=== PATIENT | female | born 1995 | race Caucasian/White ===

== ENCOUNTER 2019-04-28 09:20 | Emergency (ER) | payer BC, SELFPAY ==
[2019-04-28 09:38] VITALS: BP 139/83; PULSE 126; RESP 20; TEMP 37.4; O2SAT 100
--- NOTE | 2019-04-28 09:54 | ED.SKABFB ---
HPI - Skin/Abscess/Foreign Bdy General Chief complaint: Skin/Abscess/Foreign Body <MYNOR Nguyễn Last Filed: 04/28/19 10:02> Stated complaint: RASH X1D <MYNOR Nguyễn Last Filed: 04/28/19 10:02> Time Seen by Provider: 04/28/19 09:29 <MYNOR Nguyễn Last Filed: 04/28/19 10:02> Source: patient <MYNOR Nguyễn Last Filed: 04/28/19 10:02> Mode of arrival: ambulatory <MYNOR Nguyễn Last Filed: 04/28/19 10:02> Limitations: no limitations <Juanis Harry PA-C - Last Filed: 04/28/19 10:02> History of Present Illness HPI narrative: This is a 23-year-old female that presents the emergency department for rash since yesterday. Reports a week and a half ago she was seen at an urgent care and diagnosed with possible strep and started on Bactrim. Reports a culture of her throat was sent, that did come back positive. Reports she was seen again at an urgent care yesterday when she started to develop a rash after finishing Bactrim Wednesday. Reports today did a rapid strep that was negative yesterday. Reports the rash is itchy. Reports worsening this morning. Denies fever, myalgias, or mucosal involvement. <MYNOR Nguyễn Last Filed: 04/28/19 10:02> Related Data Allergies/Adverse reactions: Allergies Allergy/AdvReac Type Severity Reaction Status Date / Time sulfamethoxazole Allergy Mild Rash Verified 04/28/19 09:42 [From Bactrim] trimethoprim [From Bactrim] Allergy Mild Rash Verified 04/28/19 09:42 <MYNOR Nguyễn Last Filed: 04/28/19 10:02> Review of Systems Review of Systems: Narrative: CONSTITUTIONAL: Denies fever SKIN: Reports rash and itching. MUSCULOSKELETAL: Denies myalgia. <MYNOR Nguyễn Last Filed: 04/28/19 10:02> All systems reviewed & are unremarkable except as noted in HPI and below <Juanis Harry PA-C - Last Filed: 04/28/19 10:02> [facility] Past Medical History Medical History: Medical History (Updated 04/28/19 @ 10:01 by Juanis Harry PA-C) Healthy female <Juanis Harry PA-C - Last Filed: 04/28/19 10:02> Social History Social History: Social History (Updated 04/28/19 @ 09:57 by Juanis Harry PA-C) Smoking status: Never smoker <Juanis Harry PA-C - Last Filed: 04/28/19 10:02> Exam Narrative: Exam Narrative: GENERAL: Well-appearing, well-nourished, and in no acute distress. HEAD: Normocephalic, atraumatic. EYES: EOMI. ENT: Nares clear, no rhinorrhea or epistaxis. Mucous membranes moist. Oropharynx with mild tonsillar hypertrophy, no exudate or other lesions. Bilateral TMs pearly hernández non-bulging NECK: Supple. No adenopathy or masses. CHEST: Clear to auscultation. No respiratory distress. No wheezes rales or rhonchi HEART: Regular rate and rhythm. No murmur heard. Normal peripheral pulses. EXTREMITIES: Normal range of motion. No edema. SKIN: Warm, dry. Diffuse red, papular rash present. No mucosal involvement or sloughing of skin NEURO: No focal deficits. Alert and oriented x3. PSYCH: Normal mood and affect <Juanis Harry PA-C - Last Filed: 04/28/19 10:02> Course Vital Signs Vital signs: Vital Signs Temperature 99.3 F 04/28/19 09:38 Pulse Rate 126 H 04/28/19 09:38 Respiratory Rate 04/28/19 09:38 Blood Pressure 139/83 04/28/19 09:38 Pulse Oximetry 100 04/28/19 09:38 Temperature 99.3 F 04/28/19 09:38 Pulse Rate 105 H 04/28/19 10:10 Respiratory Rate 04/28/19 10:10 Blood Pressure 129/86 04/28/19 10:10 Pulse Oximetry 99 04/28/19 10:10 <MYNOR Nguyễn Last Filed: 04/28/19 10:02> Vital Signs Temperature 99.3 F 04/28/19 09:38 Pulse Rate 126 H 04/28/19 09:38 Respiratory Rate 04/28/19 09:38 Blood Pressure 139/83 04/28/19 09:38 Pulse Oximetry 100 04/28/19 09:38 Temperature 99.3 F 04/28/19 09:38 Pulse Rate 105 H 04/28/19 10:10 Respiratory Rate
[2019-04-28 10:10] VITALS: BP 129/86; PULSE 105; RESP 20; O2SAT 99
== END 2019-04-28 10:10 | disposition home or self-care (01) ==
PROVIDERS: Emergency Provider General Practice
DX: R21 Rash and other nonspecific skin eruption (principal)
CPT/HCPCS: 99283